=== PATIENT | female | born 1985 | race Caucasian/White ===

== ENCOUNTER 2017-02-11 11:47 | Inpatient (IN) | payer OTHER ==
[~2017-02-11] VITALS: Ht 172.7 cm; Wt 90.7 kg
[~2017-02-11 11:47] MED LIST: BUPR2TAB PO; PREN-105 PO; Penicillin G K Inj 5,000,000 UNITS in Dextrose 5% Minibag Plus 100 ML IV ONE
[2017-02-11 12:32] LABS: Mean Corpuscular Hemoglobin 26.4 pg (27.0-35.0); Mean Corpuscular Volume 81.7 fL (81-100)
[2017-02-11] MEDS ORDERED: Hemorrhage Kit, Post Partum XX ONE ×2 (12:40→16:15)
[2017-02-11] MEDS ORDERED: Sodium Chloride LOK Flush 10 mL Syringe IVFLUSH PRN (12:40)
[2017-02-11] MEDS ORDERED: Oxytocin 10 Unit/mL Inj IM PRN ×2 (12:40→16:15)
[2017-02-11] MEDS ORDERED: Methylergonovine 0.2 mg/mL Inj IM PRN ×2 (12:40→16:15)
[2017-02-11] MEDS ORDERED: Lactated Ringer's 1,000 ML IV PRN (12:40)
[2017-02-11] MEDS ORDERED: Carboprost 250 mCg/mL Inj IM PRN ×2 (12:40→16:15)
[2017-02-11] MEDS ORDERED: Oxytocin 30 Units/500 mL LR 30 UNITS in IV Premix 1 EACH IV PRN ×2 (12:40→16:15)
[2017-02-11] MEDS ORDERED: Penicillin G K 5,000,000 Units Inj ONE (12:45)
[2017-02-11] MEDS ORDERED: 0.9% Sodium Chloride 100 ML IV ONE (12:46)
[2017-02-11] MEDS ORDERED: Lactated Ringer's 500 ML IV ONE (12:53)
[2017-02-11] MEDS ORDERED: Lactated Ringer's 1,000 ML IV SCH ×2 (12:53→16:15)
[2017-02-11] MEDS ORDERED: fentaNYL 2 mCg/mL-Bupiv 0.125% 100 ML EPIDURAL SCH (12:55)
[2017-02-11] MEDS ORDERED: Atropine 1 mg/10 mL (Code) Syringe IVPUSH PRN (12:55)
[2017-02-11] MEDS ORDERED: EPHEDrine Sulfate 50 mg/mL Inj IVPUSH PRN (12:55)
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
[2017-02-11] MEDS ORDERED: Lactated Ringer's 500 ML IV SCH (13:35)
--- NOTE | 2017-02-11 14:40 | PCM.HPOB ---
Subjective Date of Service: Feb 11, 2017 Referring Provider: Admitting Physician: Nano Walker MD Primary Care Physician: Nopcp Attending Physician: Nano Walker MD Chief Complaint 39 week gestation History of Present History of Present Illness This is a 31-year-old at 39 weeks 4 days with an DASHAWN of 02/14/17 established by 6 week 2 day ultrasound who presents with contractions. Patient states she is edy every 1-2 minutes regularly. She has a history of QT prolongation, depression and narcotic abuse. EKG done today shows QT prolongation at 503 QTc. She has had much more pronounced prolongation of the past up to 600 QTc leading to requiring CPR and hospitalization. She has had a long workup by [facility] cardiology and it was established that this pronounced QT elongation secondary to Zoloft and Imodium use. She is currently asymptomatic and not requiring cardiac medication. She is GBS positive. 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 Depression Surgical History: Hernia repair Hx Tobacco Use: No Smoking Status: Never Smoker Hx Alcohol Use: No Hx Substance Use: Yes (narcotic abuse) Past Family History Living Arrangement: with Family Genetic Screening/Counseling Genetic Screening/Counseling: Unknown Review of Systems Constitutional: Y: Chills, Dizziness, Fever Eyes: Denies: Blurred Vision, Double Vision Cardiovascular: Reports: Edema, Denies: Chest Pain, Palpitations, SOB while laying flat Respiratory: Denies: Pleuritic Chest Pain, Pleuritic Chest Pain, SOB with Exertion Gastrointestinal: Denies: Epigastric pain Genitourinary: Denies: Dysuria Neurological: Denies: Confusion, Dizziness Psychologic: Denies: Depression Allergy Coded Allergies: prochlorperazine edisylate (Verified Allergy, Unknown, 12/25/14) prochlorperazine maleate (Verified Allergy, Unknown, 12/25/14) Exam Vital Signs BP 107/62 Heart rate 68 Respiration rate 16 Temp 36.5 Exam Heart tracing Baseline 120 Category 1 tracing with moderate variability Constitutional: Well-developed, Well-nourished, Normal habitus HEENT: Atraumatic Lungs: Clear to Auscultation Heart: Regular Rate/Rhythm, Normal S1, Normal S2 Fundus Firm Abdomen: Gravid Extremities: Edema (very mild pitting) Neurological/Psychiatric: Alert, Oriented X3, Cooperative, No Acute Distress Neuro: Grossly Neurologically Intact, Normal DTRs, No Clonus noted Labs/Diagnostics Labs Laboratory Tests 72 Hours Test 02/11/17 12:15 02/11/17 12:51 02/11/17 13:32 White Blood Count 16.7th/mm3 (3.8-10.1) Red Blood Count 4.54mil/mm3 (3.90-5.20) Hemoglobin 12.0g/dL (12.0-15.6) Hematocrit 37.1% (35.0-46.0) Mean Corpuscular Volume 81.7fL (81-100) Mean Corpuscular Hemoglobin 26.4pg (27.0-35.0) Mean Corpuscular Hemoglobin Concent 32.3% (32.0-37.0) Red Cell Distribution Width 13.7% (12.3-15.4) Platelet Count 310bil/L (150-400) Sodium Level 133mEq/L (134-144) Potassium Level 3.4mEq/L (3.5-5.2) Chloride Level 98mEq/L (97-108) Carbon Dioxide Level 17mmol/L (18-29) Blood Urea Nitrogen 8mg/dL (6-20) Creatinine 0.50mg/dL (0.57-1.00) Estimat Glomerular Filtration Rate 209mL/min (>59) Glucose Level 89mg/dL (60-99) Calcium Level 8.8mg/dL (8.5-10.1) Total Bilirubin 0.5mg/dL (0.0-1.2) Aspartate Amino Transf (AST/SGOT) 21U/L (0-50) Alanine Aminotransferase (ALT/SGPT) 11U/L (0-32) Alkaline Phosphatase 244U/L (25-150) Total Protein 7.2g/dL (6.4-8.4) Albumin 3.4g/dL (3.4-5.0) Hold Urine Received (Received) Urine Opiates Screen Negative Urine Methadone Screen Negative Urine Barbiturates Screen Negative Urine Amphetamines Screen Negative Urine Benzodiazepines Screen Negative Urine Cocaine Metabolite Screen Negative Urine Cannabinoids Screen Negative Maternal Blood Type: A (positive) Hx Rho(D) Immune Globulin: No Group B Strep Results: Positive Previous with GBS: Yes Rubella: Immune OB Intrapartum Assessment/Plan Problems: (1) 39 weeks gestation of Status: Acute ICD Code: Z3A.39 (2) Prolonged QT interval Status: Acute ICD Code: R94.31 (3) Positive GBS test Plan: Routine intrapartum care Prophylactic antibiotic treatment for GBS positive status EKG now and Assess patient regularly for chest pain and shortness of breath Progress labor by rupturing amniotic sac. Minimal exposure to narcotics as patient has a history of abuse. Status: Acute ICD Code: B95.1 Attending Statement 31 yo P1, admitted for labor. At adimission, she told triage nurse of her history of cardiac arrest with ventricular tachycardia, abnormal ECHO, prolonged QT interval. Record reviewed and noticed her last cardiology visit was one year ago. She had surveillance monitor and was not told any abnormality. She's on no meds and has no discomfort. She also told triage nurse of history of drug abuse. This history was also not known until late at care. No drugs after 2011 per patient. No urine toxicity was done during . Plan: --Urine drug screen --EKG, consider more evaluation if abnormal. --EKG showed mostly normal except slightly prolonged QT interval, which improved compare to her last EKG. --Consider epidural for pain --close monitor symptoms during labor --shorten 2nd stage of labor if needed Maria Del Rosario Crane DO Feb 11, 2017 14:40 Nano Walker MD Feb 13, 2017 15:00
[2017-02-11] MEDS ORDERED: Penicillin G K Inj 3,000,000 UNITS in IV Premix 1 EACH IV SCH (15:00)
[2017-02-11] MEDS ORDERED: Witch Hazel-Glycerin Pads TOPICAL PRN (16:15)
[2017-02-11] MEDS ORDERED: LANOlin HPA 7 Gm Ointment TOPICAL PRN (16:15)
[2017-02-11] MEDS ORDERED: Benzocaine (Dermoplast) 20% 60 Gm Spray TOPICAL PRN (16:15)
--- NOTE | 2017-02-11 17:53 | OP ---
[address] [address] OPERATIVE REPORT PATIENT: MALLIKA TAVERAS : 1985 MR#: [id number] ADMIT: 02/11/2017 JOB ID: [id number] DATE OF SURGERY: 02/11/2017 SURGEON: Nano Walker MD PREOPERATIVE DIAGNOSIS(ES): POSTOPERATIVE DIAGNOSIS(ES): DELIVERY NOTE: The patient is a 41-year-old female, 2, para 2 now, status post vaginal delivery now. The patient presented to [facility] for contraction and she was noticed to be 4 cm and progressed to 5 cm. After admission she had regular contractions and a category 1 tracing. The patient progressed spontaneously. Rupture of membranes performed when she was 5 cm dilated, with clear fluid. She was noticed to develop to full dilation and had a strong urge to push. The delivered at CLIFTON position. No nuchal cord. Shoulder and chest delivered without difficulty. The infant was placed on mother's chest. Noted to have good tone and spontaneous crying. Delayed cord clamping performed one minute after delivery. Regular cord blood collected. Placenta delivered spontaneously, completely, and examined with three-vessel cord. The uterus was well contracted after delivery of the placenta. Perineum examined. There is no laceration. The EBL during the delivery was about 100 mL. All instrument, needles, laps, and gauzes counted correct twice. The patient has a previous history of a cardiac arrest in 2004 with ventricular tachycardia and she had a cardiac followup afterwards and with acute and prolonged QT interval. 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 No palpitation or any other discomfort. During labor the patient also doing well. The pushing was shortened with trying to labor down but with limited pushing she was doing well. After the placenta delivered, the patient has no discomfort.
--- NOTE | 2017-02-12 14:49 | PCM.DIMED ---
Discharge Instructions Date of Service Feb 12, 2017 Dates of Hospitalization Feb 11, 2017 at 12:41 Diet Discharge Diet: No restrictions Activity Discharge Activity: No restrictions Call your provider Call your provider for: Fever or Chills, Shortness of breath, Bleeding, Chest pain, Vomitting, Excessive diarrhea, Weakness (unilateral) Patient Instructions Follow-up with PCP in: 6 weeks Devin Downing MD Feb 12, 2017 14:48
[2017-02-12 14:50] VITALS: BP 105/50; PULSE 65; RESP 16
[2017-02-12] MEDS ORDERED: IBUP-1827 PO (14:50)
[2017-02-12] MEDS ORDERED: DOCU-41 PO (14:50)
--- NOTE | 2017-02-12 15:18 | DIS ---
[address] [address] DISCHARGE SUMMARY PATIENT: MALLIKA TAEVRAS : 1985 MR#: [id number] ADMIT: 02/11/2017 JOB ID: [id number] DIS: 02/12/2017 ADMITTING DIAGNOSES: A 31-year-old, 2, para 1, at 39 weeks and 4 days in active labor, depression, substance abuse, GBS positive. DISCHARGE DIAGNOSES: A 31-year-old 2, para 2 status post spontaneous vaginal delivery at term, depression, stress-induced cardiomyopathy. The patient is a 31-year-old, 2, para 2, now who came to Labor and Delivery at 39 weeks and 4 days with complaint of contractions. There was cervical change when examined. The patient was admitted for delivery. At admission, she was 5 cm dilated. heart rate tracing was reactive category one. She had artificial rupture of membranes with clear amniotic fluid. Subsequently patient underwent uncomplicated spontaneous vaginal delivery with estimated blood loss of 100 mL. She has not had any lacerations. She has delivered male with Apgars 9 at one minute and 9 at five minutes. The patient has a history of ventricular tachycardia before. However, her delivery and course during her stay in the hospital was uncomplicated. She has not had any cardiac issues. The patient was seen on day one, February 12, 2017, was stable, afebrile, ambulating and breast-feeding well. On examination, the abdomen was soft, nondistended, nontender. The fundus was firm at the level of the umbilicus and there was no vaginal bleeding. No abnormal vaginal discharge. The patient was discharged home on February 12, 2017 day one with all discharge criteria met. She received discharge medications includin. Ibuprofen 600 mg p.o. t.i.d. p.r.n. 2. Colace 100 mg p.o. daily p.r.n. Follow up visit in the clinic is scheduled in six weeks.
== END 2017-02-12 15:16 | disposition home or self-care (01) | DRG 560 ==
LOC: FBCO 11:47 → FBC 12:41
PROVIDERS: ADMIT Obstetrics & Gynecology; ATTEND Obstetrics & Gynecology
PROC: 10E0XZZ Delivery of Products of Conception, External Approach (ICD-10-PCS; principal; 2017-02-11)
PROC: 10907ZC Drainage of Amniotic Fluid, Therapeutic from Products of Conception, Via Natural or Artificial Opening (ICD-10-PCS; 2017-02-11)
DX: O99.824 Streptococcus B carrier state complicating childbirth (principal); O99.42 Diseases of the circulatory system complicating childbirth; O99.344 Other mental disorders complicating childbirth; F32.9 Major depressive disorder, single episode, unspecified; I51.81 Takotsubo syndrome; Z3A.39 39 weeks gestation of pregnancy; Z37.0 Single live birth